=== PATIENT | female | born 1985 | race Caucasian/White ===

== ENCOUNTER 2018-02-06 10:58 | Emergency (ER) | payer OTHER ==
[2018-02-06 12:51] VITALS: BP 118/69
[2018-02-06] MEDS ORDERED: Acetaminophen TAB* 325 MG PO ONE (13:19)
[2018-02-06] MEDS ORDERED: Acetaminophen TAB* 325 MG ONE (13:22)
--- NOTE | 2018-02-06 21:19 | ED ---
Marco Antonio Madrigal Natalie, scribed for Jason Cain MD on 02/06/18 at 1307 . Abdominal Pain/Female - HPI Summary HPI Summary: The pt is a 32 y/o F presenting to the ED c/o lump and tenderness in RLQ with sudden onset after working out this morning. The pain radiates in episodes of sharp pain to her inguinal area and upper right thigh. The pain is rated 6/10 in severity. The pain is aggravated by movement. She treated the pain with Tylenol [employer] to some relief. Pt additionally c/o constipation for a week. Pt denies vaginal discharge and dysuria. She has not had an episode similar to this before. - History of Current Complaint Chief Complaint: EDAbdPain Stated Complaint: ABD PAIN Time Seen by Provider: 02/06/18 12:39 Hx Obtained From: Patient Onset/Duration: Sudden Onset, Still Present Timing: Constant Severity Initially: Moderate Severity Currently: Moderate Pain Intensity: 6 Pain Scale Used: 0-10 Numeric Location: Discrete At: RLQ Radiates: Yes Radiates to: Inguinal, Other - upper right thigh Character: Sharp Aggravating Factor(s): Movement Alleviating Factor(s): Medications - Tylenol Associated Signs and Symptoms: Positive: Constipation, Other: - lump in RLQ. Negative: Urinary Symptoms, Vaginal Discharge Allergies/Adverse Reactions: Allergies Allergy/AdvReac Type Severity Reaction Status Date / Time No Known Allergies Allergy Verified 02/06/18 11:06 Home Medications: Home Medications ARIPiprazole TAB* [Abilify TAB*] mg PO DAILY 02/06/18 [History] Dolutegravir (NF) [Tivicay (NF)] 50 mg PO DAILY 02/06/18 [History Confirmed 08/16] Gabapentin CAP(*) [Neurontin 300 CAP(*)] 300 mg PO TID 02/06/18 [History Confirmed 02/06/18] PARoxetine HCL TAB* [Paxil TAB*] 20 mg PO QAM 02/06/18 [History Confirmed ] Tenofovir/Emtricitabine(*) [Truvada*] 1 tab PO DAILY 02/06/18 [History Confirmed 02/06/18] hydrOXYzine HCL TAB* [Atarax TAB 50 MG *] 100 mg PO TID 02/06/18 [History Confirmed 02/06/18] PMH/Surg Hx/FS Hx/Imm Hx Opthamlomology History: Denies: Hx Legally Blind EENT History: Denies: Hx Deafness Infectious Disease History: No Infectious Disease History: Denies: Traveled Outside the [place] in Last 30 Days - Family History Known Family History: Negative: Hypertension Review of Systems Positive: Abdominal Pain - RLQ radiating to inguinal area, lump, Other - constipation Negative: dysuria, discharge All Other Systems Reviewed And Are Negative: Yes Physical Exam - Summary Physical Exam Summary: Appearance: The patient is well-nourished in no acute distress and in no acute pain. Skin: The skin is warm and dry and skin color reflects adequate perfusion. HEENT: The head is normocephalic and atraumatic. The pupils are equal and reactive. The conjunctivae are clear and without drainage. Nares are patent and without drainage. Mouth reveals moist mucous membranes and the throat is without erythema and exudate. The external ears are intact. The ear canals are patent and without drainage. The tympanic membranes are intact. Neck: the neck is supple with full range of motion and non-tender. There are no carotid bruits. There is no neck vein distension. Respiratory: Chest is non-tender. Lungs are clear to auscultation and breath sounds are symmetrical and equal. Cardiovascular: Heart is regular rate and rhythm. There is no murmur or rub auscultated. There is no peripheral edema and pulses are symmetrical and equal. Abdomen: The abdomen is firm and tender with lump superior to right inguinal area. The lump feels mobile compared to the abdominal wall. There are normal bowel sounds heard in all four quadrants and there is no organomegaly palpated. Musculoskeletal: There is no back tenderness noted. Extremities are non-tender with full range of motion. There is good capillary refill. There is no peripheral edema or calf tenderness elicited. Neurological: Patient is alert and oriented to person, place and time. The patient has symmetrical motor strength in all four extremities. Cranial nerves are grossly intact. Deep tendon reflexes are symmetrical and equal in all four extremities. Psychiatric: The patient has an appropriate affect and does not exhibit any anxiety or depression. Triage Information Reviewed: Yes Vital Signs On Initial Exam: Initial Vitals Temp Pulse Resp BP Pulse Ox 98.4 F 82 16 112/76 100 02/06/18 11:00 02/06/18 11:00 02/06/18 11:00 02/06/18 11:00 02/06/18 11:00 Vital Signs Reviewed: Yes Diagnostics - Vital Signs Vital Signs Temp Pulse Resp BP Pulse Ox 02/06/18 11:00 98.4 F 82 16 112/76 100 - Laboratory Lab Statement: Any lab studies that have been ordered have been reviewed, and results considered in the medical decision making process. Abdominal Pain Fem Course/Dx - Course Course Of Treatment: Ms. Iglesias was found to have a tender lump superior to her right inguinal area. It is somewhat mobile and doesn't seem to be a hernia. My impression is that it is a node but seems more like a sub Q node than an inguinal node. She denies any pelvic symptoms but may need a pelvic exam at some point. She doesn't want it here. - Diagnoses Provider Diagnoses: Lymphadenopathy Discharge - Sign-Out/Discharge Documenting (check all that apply): Discharge/Admit/Transfer - Discharge Plan Condition: Stable Disposition: HOME Prescriptions: DOXYcycline CAP(*) [DOXYcycline 100MG CAP(*)] 100 mg PO BID #20 cap Referrals: Gonzalo Carlos [Primary Care Provider] - 3 Days Additional Instructions: Please take Doxycycline as prescribed. Follow up with primary care physician in 2-3 days. Please return to the emergency department for any new or worsening symptoms. - Billing Disposition and Condition Condition: STABLE Disposition: HOME The documentation as recorded by the Marco Antonio chavez Natalie accurately reflects the service I personally performed and the decisions made by me, Jason Cain MD.
== END 2018-02-06 13:37 | disposition home or self-care (01) ==
LOC: ED 10:58
DX: R59.1 Generalized enlarged lymph nodes (principal); K59.00 Constipation, unspecified
CPT/HCPCS: 99283; A9270-GY